=== PATIENT | male | born 1955 | race Caucasian/White ===

== ENCOUNTER 2018-11-05 09:14 | Inpatient (IN) | payer OTHER ==
--- NOTE | 2018-11-05 09:45 | CT ---
CT Brain WO Con: 11/05/2018 9:30 AM CLINICAL HISTORY: Stroke protocol. IMAGING TECHNIQUE: Multiple CT images were obtained of the brain without IV contrast. COMPARISON: None. FINDINGS: Extra axial spaces: Normal in size and morphology for the patient's age. Hemorrhage: None. Ventricular system: Normal in size and morphology for the patient's age. Basal cisterns: Normal. Cerebral parenchyma: There is moderate chronic small vessel white matter ischemic change. There are r emote lacunar infarcts involving the basal ganglia bilaterally as well as the left thalamus. Midline shift: None. Cerebellum: Normal. Brainstem: Normal. OTHER: Calvarium: Normal. Vascular system: Normal. Visualized Paranasal sinuses: Clear. Visualized Orbits: Normal. Visualized upper cervical spine: Normal. Sella and skull base: Normal. IMPRESSION: No acute intracranial abnormality. Findings called to Dr. Foster at 9:40 AM on November 05, 2018.
[2018-11-05 09:47] LABS: INR-International Normal Ratio 1.1; PTT 36.8 SEC (22.9-36.1); Prothrombin Time 13.8 SEC (12.0-14.7)
[2018-11-05 09:51] LABS: Band 3 % (5-11); Eosinophils 2 % (0-10); Hemoglobin 16.8 g/dL (14.0-18.0); Lymphocytes 6 % (21-51); MDiff Complete? YES; Mean Corpuscular HGB CONC 32.6 g/dL (32.0-36.0); Mean Corpuscular Hemoglobin 27.4 pg (27.0-31.0); Mean Corpuscular Volume 83.8 fL (78.0-98.0); Mean Platelet Volume 7.8 fL (7.4-10.4); Monocytes 13 % (0-10); Neutrophil 74 % (42-75); Platelet Count 207 thou/uL (130-400); Platelet Morphology Comment Appears Adequate; RBC Distribution Width 13.4 % (11.5-14.5); Reactive Lymphocytes 1 % (0-10); Red Blood Cell (RBC) Count 6.13 mill/uL (4.70-6.10); White Blood Cell (WBC) Count 8.9 thou/uL (4.8-10.8)
[2018-11-05] MEDS ORDERED: niCARdipine 20MG In NaCl 20 MG/200 ML BAG ONE (09:56)
[2018-11-05 10:00] LABS: Bilirubin Negative (Negative); Blood, Urine Small (Negative); Glucose, Urine (Dipstick) Negative (Negative); Leukocyte Negative (Negative); Nitrite Negative (Negative); Protein, Urine (Dipstick) > or equal to 300 mg/dL (Neg-Trace); Specific Gravity, Urine 1.025 (1.005-1.030); Urobilinogen 0.2 mg/dL (0.2-1.0); pH, Urine 6.5 (5.0-9.0)
[2018-11-05 10:01] LABS: Clarity Slightly Cloudy (Clear)
[2018-11-05 10:02] LABS: Squamous Epithelial 0-3 HPF (0-3); WBC/HPF 0-3 HPF (0-3)
[2018-11-05 10:03] LABS: Bacteria/HPF None Seen HPF (None Seen); Other Casts/LPF 0-3 FINELY GRAN LPF (0-3 Hyaline)
--- NOTE | 2018-11-05 10:09 | RAD ---
EXAM: XR Chest 1 View Portable PROVIDED CLINICAL HISTORY: Altered mental status COMPARISON: None FINDINGS: Cardiac silhouette appears enlarged, which may be least partially on the basis of portable technique. Vascular calcification involves the aortic arch. Elevation of the right hemidiaphragm of unknown chronicity. No focal consolidation, pleural fluid or pneumothorax apparent. IMPRESSION: No definite evidence for an acute cardiopulmonary process.
[2018-11-05 10:20] LABS: ALT (SGPT) 25 U/L (8-55); AST (SGOT) 28 U/L (5-34); Albumin 4.1 g/dL (3.4-4.8); Alkaline Phosphatase 66 U/L (40-150); Anion Gap 16 mmol/L (10-20); BUN (Urea Nitrogen) 13 mg/dL (8.4-25.7); Bilirubin, Total 1.6 mg/dL (0.2-1.2); Calc. Creatinine Clearance 0 mL/min (70-130); Carbon Dioxide 24 mmol/L (23-31); Chloride 103 mmol/L (98-107); Estimated GFR-MDRD Greater than 90; Globulin 2.7 g/dL (2.4-3.5); Glucose 151 mg/dL (80-115); Lipase 19 U/L (8-78); Potassium 3.7 mmol/L (3.5-5.1); Protein, Total 6.8 g/dL (5.8-8.1); Sodium 139 mmol/L (136-145)
[2018-11-05 12:42] VITALS: BMI 37.8
[2018-11-05] MEDS ORDERED: niCARdipine 20MG In NaCl 20 MG/200 ML BAG IVPB SCH ×2 (13:30→13:45)
[2018-11-05 14:27] LABS: Troponin I 0.025 ng/mL (< 0.028)
[2018-11-05] MEDS ORDERED: Loperamide HCl 2 MG CAP PO PRN (15:19)
[2018-11-05] MEDS ORDERED: Ondansetron PF 4 MG/2 ML Vial IVP PRN (15:19)
[2018-11-05] MEDS ORDERED: hydrALAZINE 20 MG/ML VIAL SLOW IVP PRN (15:19)
[2018-11-05] MEDS ORDERED: Labetalol HCl 100 MG/20 ML VIAL SLOW IVP PRN (15:19)
[2018-11-05] MEDS ORDERED: Guaifenesin DM 100-10/5 ML UDCUP PO PRN (15:19)
[2018-11-05] MEDS ORDERED: Zolpidem Tartrate 5 MG TAB PO PRN (15:19)
[2018-11-05] MEDS ORDERED: HYDROcodone/Acetaminophen 7.5/325 mg Tablet PO PRN (15:19)
[2018-11-05] MEDS ORDERED: Dextrose 50% Abboject 50 ML SYRINGE SLOW IVP PRN (15:24)
[2018-11-05] MEDS ORDERED: HumaLOG 300 UNITS/3 ML VIAL SC PRN (15:24)
[2018-11-05] MEDS ORDERED: Dextrose 5% in Water 1,000 ML IV PRN (15:24)
[2018-11-05 16:18] LABS: Troponin I 0.021 ng/mL (< 0.028)
[2018-11-05] MEDS: niCARdipine HCl 25 MG in Sodium Chloride 0.9% 250 ML 240 ML IVPB SCH ×2 (18:09→22:17)
[2018-11-05] MEDS: Rosuvastatin 20 MG TAB PO SCH (21:02)
[2018-11-05] MEDS: Famotidine 20 MG TAB PO SCH (21:03)
--- NOTE | 2018-11-05 22:23 | HP ---
REASON FOR ADMISSION: Altered mentation, slurred speech. PRIMARY CARE PHYSICIAN: Out of town physician. HISTORY OF PRESENT ILLNESS: This is a 63-year-old male with past medical history of type 2 diabetes, hypertension, obstructive sleep apnea, atrial fibrillation, came to the hospital with slurry speech and altered mentation. The patient is visiting here, actually he is a friend of chief security and safety officer, Dr. Stiles and he was staying with Dr. Stiles, started to have slurred speech yesterday last night and thought it might get better, but this morning also he continued to have it and he was taken to the ER. Currently, he is feeling better. All his symptoms are resolved now. He was evaluated in the ER and was sent over here for further evaluation for stroke. He was out of the interventional and surgical time line. No chest pain or palpitation. No fever or chills. No nausea or vomiting. The patient denies any symptoms at this point and denies any blurriness or headaches. Denies any weakness. PAST MEDICAL HISTORY: Positive for type 2 diabetes, hypertension, hyperlipidemia, obstructive sleep apnea, atrial fibrillation. PAST SURGICAL HISTORY: Knee surgery. HOME MEDICATIONS: 1. Metoprolol 200 mg daily. 2. Benicar HCT 40/12.5 one p.o. daily. 3. Atorvastatin 20 mg daily. 4. Metformin 1000 b.i.d. ALLERGIES: NO KNOWN DRUG ALLERGIES. CODE STATUS: Full. SOCIAL HISTORY: Denies any smoking, alcohol, or illicit drug abuse, he is a social drinker. FAMILY HISTORY: Positive for heart disease. REVIEW OF SYSTEMS: CONSTITUTIONAL: Negative for weight loss or gain, ability to conduct usual activities. SKIN: Negative for rash, itching. EYES: Negative for double vision, pain. ENT/MOUTH: Negative for nose bleeding, neck stiffness, pain, tenderness. CARDIOVASCULAR: Negative for palpitations, dyspnea on exertion, orthopnea. RESPIRATORY: Negative for shortness of breath, wheezing, cough, hemoptysis, fever or night sweats. GASTROINTESTINAL: Negative for poor appetite, abdominal pain, heartburn, nausea, vomiting, constipation, or diarrhea. GENITOURINARY: Negative for urgency, frequency, dysuria, nocturia. MUSCULOSKELETAL: Negative for pain, swelling. NEUROLOGIC/PSYCHIATRIC: Negative for anxiety, depression. ALLERGY/IMMUNOLOGIC: Negative for skin rash, bleeding tendency. PHYSICAL EXAMINATION: GENERAL: This is an obese male, in no apparent distress. VITAL SIGNS: Temperature 98, pulse 68, respiratory rate 28, blood pressure 149/89. HEENT: Atraumatic, normocephalic. Oral mucosa moist. NECK: Supple. CV: S1, S2. Rate irregularly irregular. CHEST: Clear. GI: Abdomen is obese, soft, nontender. MUSCULOSKELETAL: 1+ edema. DERMATOLOGIC: No skin rash. NEUROLOGICAL: Alert, awake, moves all the extremities. No weakness. Sensations are normal. Extraocular muscles are intact. Pupils are equal, round, and reactive to light. PSYCHIATRIC: Mood and affect normal. LABORATORY DATA: Hemoglobin 16.8, potassium is 3.7, BUN is 13, creatinine is 0.8. ASSESSMENT AND PLAN: 1. Altered mentation. We will rule out cerebrovascular accident, most likely transient ischemic attack, but plan is to have MRI, and also neuro consult and stroke team. We will also check carotid Doppler and echocardiogram. 2. Aphasia, as above. 3. Hypertension, on Cardene drip and we will start on home medications and monitor. 4. Type 2 diabetes. We will hold metformin. We will start on sliding scale and monitor blood sugar and adjust the dose as needed. 5. Hyperlipidemia, continue on statin. We will also add aspirin and the patient is not sure if he was on Plavix. Plan is to consult Neurology. Check MRI, carotid Doppler, and echocardiogram. Start on aspirin for now. The patient was not taking aspirin, we would add Plavix also. We will check lipid panel in the morning. We will check TSH in the morning. 6. Gastrointestinal/deep venous thrombosis prophylaxis. 7. Code status is full. 8. We will continue close monitoring in CCU on Cardene drip and down-titrate the medication. and monitor blood pressure closely. Job ID: [id number]
[2018-11-06] MEDS: niCARdipine HCl 25 MG in Sodium Chloride 0.9% 250 ML 240 ML IVPB SCH (01:34)
[2018-11-06 05:28] LABS: #Basophils 0.1 thou/uL (0.0-0.2); #Eosinphils 0.3 thou/uL (0.0-0.7); #Lymphocytes 1.3 thou/uL (1.20-3.40); #Monocytes 0.9 thou/uL (0.11-0.59); %Eosinophils 3.1 % (0.0-10.0); %Lymphocytes 15.6 % (21.0-51.0); %Monocytes 10.5 % (0.0-10.0); %Neutrophils 69.8 % (42.0-75.0); Hemoglobin 16.7 g/dL (14.0-18.0); Mean Corpuscular HGB CONC 32.7 g/dL (32.0-36.0); Mean Corpuscular Hemoglobin 28.4 pg (27.0-31.0); Mean Corpuscular Volume 86.6 fL (78.0-98.0); Mean Platelet Volume 8.4 fL (7.4-10.4); Platelet Count 233 thou/uL (130-400); RBC Distribution Width 13.3 % (11.5-14.5); Red Blood Cell (RBC) Count 5.88 mill/uL (4.70-6.10); White Blood Cell (WBC) Count 8.6 thou/uL (4.8-10.8)
[2018-11-06 05:36] LABS: Anion Gap 15 mmol/L (10-20); BUN (Urea Nitrogen) 15 mg/dL (8.4-25.7); Calc. Creatinine Clearance 151 mL/min (70-130); Carbon Dioxide 25 mmol/L (23-31); Cardiac Risk 2.4 (Less than 4.5); Chloride 100 mmol/L (98-107); Cholesterol 111 mg/dl (< 200 Desired); Estimated GFR-MDRD Greater than 90; Glucose 134 mg/dL (80-115); HDL Cholesterol 47 mg/dL (>60 Neg Risk); LDL Cholesterol, Calculated 42 mg/dL; Potassium 3.3 mmol/L (3.5-5.1); Sodium 137 mmol/L (136-145); Triglycerides 112 mg/dL (Less than 150)
[2018-11-06] MEDS: Hydrochlorothiazide 25 MG TAB PO SCH (08:39)
[2018-11-06] MEDS: Famotidine 20 MG TAB PO SCH ×2 (08:40→21:50)
[2018-11-06] MEDS: Enoxaparin Sodium 40 MG/0.4 ML SYRINGE SC SCH (08:40)
[2018-11-06] MEDS: Clopidogrel Bisulfate 75 MG TAB PO SCH (08:40)
--- NOTE | 2018-11-06 08:47 | PDOC.PN ---
- Subjective Encounter Start Date: 11/06/18 Encounter Start Time: 08:45 Patient seen and examined. No new complaints. No overnight events. feeling better. speech normal. no weakness. was little unsteady with the mary when he got up from the bed. No N/V. No chest pain. - Objective Resuscitation Status - Order Detail: 11/05/18 15:19 Resuscitation Status Routine Resuscitation Status: FULL: Full Resuscitation MAR Reviewed: Yes Vital Signs & Weight: Vital Signs (12 hours) Temp 11/06/18 08:00 98.6 F 11/06/18 04:00 98.9 F 11/06/18 00:00 98.5 F Weight Weight 255 lb 11.779 oz Most Recent Monitor Data Heart Rate from ECG 75 NIBP 167/114 NIBP BP-Mean 131 Respiration from ECG 21 SpO2 92 I&O: 11/05/18 11/06/18 11/07/18 06:59 06:59 06:59 Intake Total 1414 Output Total 2500 400 Balance -1086 -400 Result Diagrams: 11/06/18 04:20 11/06/18 04:20 Additional Labs: Accuchecks 11/05/18 11/05/18 11/05/18 20:56 16:35 09:26 POC Glucose 174 H 146 H 138 H Phys Exam - Physical Examination Constitutional: NAD HEENT: sclera anicteric Neck: supple Respiratory: no wheezing, no rales Cardiovascular: irregular Gastrointestinal: soft Musculoskeletal: edema present Neurological: non-focal Psychiatric: normal affect, A&O x 3 Skin: no rash Dx/Plan (1) Aphasia Code(s): R47.01 - APHASIA Status: Resolved (2) HTN (hypertension) Code(s): I10 - ESSENTIAL (PRIMARY) HYPERTENSION Status: Chronic (3) HLD (hyperlipidemia) Code(s): E78.5 - HYPERLIPIDEMIA, UNSPECIFIED Status: Chronic (4) Type 2 diabetes mellitus Status: Chronic (5) Afib Code(s): I48.91 - UNSPECIFIED ATRIAL FIBRILLATION Status: Chronic - Plan cont current plan of care, PT/OT, out of bed/ambulate, DVT proph w/lovenox * . symptoms better awaiting neuro input MRI and carotid doppler pending Echo pending continue ASA and Plavix with statin off cardene drip uptitrate BP meds Transfer to [facility] AM labs.
[2018-11-06] MEDS ORDERED: Potassium Chloride 20 MEQ TAB PO SCH (09:00)
[2018-11-06] MEDS ORDERED: Aspirin 325 mg Enteric Coated Tablet PO SCH ×2 (09:00)
[2018-11-06] MEDS: cloNIDine 0.1 MG TAB PO PRN ×2 (09:07→16:44)
--- NOTE | 2018-11-06 10:36 | ULT ---
CAROTID DUPLEX ULTRASOUND: DATE: 11/06/18 INDICATION: Question of CVA with history of altered mental status. FINDINGS: There is mild atherosclerotic plaque involving the proximal internal carotid arteries and distal comm on carotid arteries. Peak systolic velocity in the right CCA is 59.6 cm/second and in the left is 72.3 cm/second. Peak systolic velocity in the right ICA is 56.3 cm/second and in the left is 55.3 cm/second. The right ICA/CCA ratio is 0.94 and the left is 0.76. Antegrade flow seen within the vertebral arteries. IMPRESSION: No hemodynamically significant stenosis. POS: BH
--- NOTE | 2018-11-06 14:00 | MRI ---
EXAM: MRI Brain WO Con PROVIDED CLINICAL HISTORY: Stroke, slurred speech, hypertension COMPARISON: CT brain 11/05/2018 FINDINGS: The ventricular system appears normal in size and morphology. There is no evidence for intracranial h emorrhage or mass effect. There is a small focus of restricted diffusion involving the region of the left thalamus/posterior limb of left internal capsule compatible with acute lacunar infarction. P rominent chronic microvascular ischemic change involves the cerebral white matter and tracee. Appropriate flow voids are seen within the major intracranial vessels. The visualized extracranial so ft tissues and calvarial marrow signal appear normal. IMPRESSION: 1. Recent lacunar infarction involving the left thalamus/posterior limb left internal capsule. 2. Prominent chronic microvascular ischemic change.
[2018-11-06] MEDS ORDERED: ALPRAZolam 0.5 MG TAB PO SCH (17:30)
[2018-11-06] MEDS: Rosuvastatin 20 MG TAB PO SCH (21:50)
--- NOTE | 2018-11-07 00:55 | CON ---
DATE OF CONSULTATION: 11/06/2018 CHIEF COMPLAINT: The patient is a 63-year-old right-handed man, who appears comfortable today from his chair. He reports that he thinks he went up to a football game on Wednesday night and he started to have slurred speech and shortness of breath. On Wednesday night, he did not sleep well, but yesterday morning, he woke up and continued to have slurred speech and decided to come to the hospital. He has no history of weakness of sensory symptoms. His blood pressure was fluctuating since Wednesday. This morning, he feels his symptoms have completely resolved. Approximate duration of speech dysfunction was one day he had mild slowing of gait. PREVIOUS MEDICAL HISTORY: The patient has diabetes, hypertension, and hypercholesterolemia. He had three stents for his coronary artery disease. He had two stents performed ten years ago and one stent placed seven years ago. He also has atrial fibrillation. PREVIOUS SURGICAL HISTORY: Stent placement, torn cartilage repair of the left knee 20 years ago. SOCIAL HISTORY: He is a nonsmoker. He drinks alcohol occasionally. 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 Work is stressful. FAMILY HISTORY: Mother at 90 years of age following a CVA. Father at 75. He had coronary artery disease. Brother and sister are alive, they are 62 and 60 and they are healthy. ALLERGIES: NO KNOWN DRUG ALLERGIES. HOME MEDICATIONS: 1. Metoprolol. 2. Benicar. 3. Atorvastatin. 4. Metformin. REVIEW OF SYSTEMS: ENT: Negative for any throat problems or swallowing difficulties. OPHTHALMOLOGIC: Negative for any visual defects. PULMONARY: Positive for shortness of breath. GI: Negative for nausea, vomiting, or diarrhea. GENITOURINARY: Negative for any bladder dysfunction. NEUROLOGIC: Positive for slurred speech and gait disturbance. DERMATOLOGIC: Negative for any rash. HEMATOLOGIC: Negative for bleeding diathesis. PHYSICAL EXAMINATION: VITAL SIGNS: Blood pressure 186/106, heart rate is 76. The patient was afebrile, temperature 98.6. GENERAL APPEARANCE: A well-built, well-nourished, slightly obese gentleman, who appears comfortable. CHEST: Clear vesicular breathing. CARDIOVASCULAR: S1 and S2 heard. No murmurs. ABDOMEN: Soft and nontender. No organomegaly noted. NEUROLOGIC: Motor; bulk, normal and tone, normal. Strength 5/5 in the upper and lower extremities bilaterally. Muscle groups tested are iliopsoas, hamstrings, quadriceps, ankle dorsiflexion, plantar flexion, deltoid, biceps, triceps, wrist extension, flexion, finger extension, and flexion. Deep tendon reflexes 1+ in the upper extremities and 2+ in the lower extremities. Sensory and cerebellar are normal. Gait is not tested. LABORATORY WORKUP: White count 8.6, hemoglobin 16.7, hematocrit 51, and platelet count 233. Chemistry; sodium 137, potassium 3.3, chloride 100, BUN 15, creatinine 0.82, and glucose 134. Triglycerides 112, cholesterol 111, LDL 42, HDL 47, and TSH 2.73. Urinalysis is positive for protein and also small amount of blood. PT 13.8, INR 1.1, and PTT 36.8. DIAGNOSTIC DATA: CT of the head showed no evidence of any acute intracranial abnormality and MRI of the brain was completed and MRI showed recent lacunar infarct in the left thalamus and posterior limb of left internal capsule, prominent chronic microvascular ischemic change. Carotid Doppler did not show any hemodynamically significant study abnormalities. Echocardiogram is pending. IMPRESSION: The patient is a 63-year-old man, who has had fluctuations in his blood pressure with significant levels of hypertension over the past 48 hours. He has developed slurred speech and his neurological symptoms lasted for one day. He is currently back to baseline. He thinks he might have had a similar stroke 1-1/2 years ago. His MRI shows left lacunar infarct in the internal capsule in the thalamic area; however, his clinical symptoms have resolved at this time and his examination is normal. 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 TREATMENT RECOMMENDATIONS: Please add aspirin and statin to his medication regimen to control risk factor, mainly hypertension and please educate the patient about stroke risk factors and management of stress. Please complete his cardiac workup as well and have him follow up with Dr. Tolentino as outpatient extensively and he will need outpatient neurology followup. I discussed that with the patient, but the patient stated he lives in [place]. He has a neurologist. I advised him to follow up with him again. Job ID: [id number]
[2018-11-07] MEDS: cloNIDine 0.1 MG TAB PO PRN (04:43)
[2018-11-07 05:57] LABS: Anion Gap 12 mmol/L (10-20); BUN (Urea Nitrogen) 12 mg/dL (8.4-25.7); Calc. Creatinine Clearance 129 mL/min (70-130); Calcium 9.5 mg/dL (7.8-10.44); Carbon Dioxide 30 mmol/L (23-31); Chloride 101 mmol/L (98-107); Estimated GFR-MDRD 79; Glucose 124 mg/dL (80-115); Potassium 3.9 mmol/L (3.5-5.1); Sodium 139 mmol/L (136-145)
[2018-11-07] MEDS: Enoxaparin Sodium 40 MG/0.4 ML SYRINGE SC SCH (08:27)
[2018-11-07] MEDS: Clopidogrel Bisulfate 75 MG TAB PO SCH (08:28)
[2018-11-07] MEDS: Famotidine 20 MG TAB PO SCH ×2 (08:29→21:25)
[2018-11-07] MEDS: Hydrochlorothiazide 25 MG TAB PO SCH (08:29)
[2018-11-07 13:38] LABS: ANA Symphony (Qualitative) Negative (Negative); ANA Symphony (Quantitative) 0.2 Ratio (< 0.7 Negative); dsDNA IgG Antibody 4.4 IU/mL (<10 Negative)
--- NOTE | 2018-11-07 17:38 | PDOC.PN ---
- Subjective Encounter Start Date: 11/07/18 Encounter Start Time: 17:20 Subjective: f/u for HTN-induced lacunar infarct of L internal capsule with -: initial dysphasia and dysarthria now improved. Feels ok overall. - Objective Resuscitation Status - Order Detail: 11/05/18 15:19 Resuscitation Status Routine Resuscitation Status: FULL: Full Resuscitation MAR Reviewed: Yes Vital Signs & Weight: Vital Signs (12 hours) Temp Pulse Resp BP Pulse Ox 11/07/18 15:48 98.0 F 64 18 183/94 H 96 11/07/18 11:18 97.6 F 80 16 160/99 H 96 11/07/18 08:23 94 L 11/07/18 07:40 97.5 F L 64 16 174/115 H 95 Weight Weight 255 lb 11.779 oz Most Recent Monitor Data Heart Rate from ECG 70 NIBP 160/89 NIBP BP-Mean 112 Respiration from ECG 30 SpO2 100 I&O: 11/06/18 11/07/18 11/08/18 06:59 06:59 06:59 Intake Total 1414 720 Output Total 2500 400 Balance -1086 320 Result Diagrams: 11/06/18 04:20 11/07/18 05:21 Additional Labs: Accuchecks 11/07/18 05:30 POC Glucose 122 H Radiology Reviewed by me: Yes (MRI brain - acute lacunar infarct L internal capsule) EKG Reviewed by me: Yes (Tele - A-fib in 70's) Phys Exam - Physical Examination Constitutional: NAD HEENT: PERRLA, sclera anicteric, oral pharynx no lesions Neck: no nodes, no JVD, supple, full ROM Respiratory: no wheezing, no rales, no rhonchi, clear to auscultation bilateral S1, S2 Cardiovascular: no significant murmur, no rub, irregular Gastrointestinal: soft, non-tender, no distention, positive bowel sounds mild LE edema Musculoskeletal: pulses present Neurological: normal sensation, moves all 4 limbs Psychiatric: A&O x 3 Skin: normal turgor, cap refill <2 seconds Dx/Plan (1) CVA (cerebral vascular accident) Code(s): I63.9 - CEREBRAL INFARCTION, UNSPECIFIED Status: Acute Qualifiers: Laterality of affected vessel: left Comment: Lacunar infarct L internal capsule, continue Plavix 75mg daily, risk factor modification (2) Dysarthria Code(s): R47.1 - DYSARTHRIA AND ANARTHRIA Status: Acute Comment: Secondary to #1, improved (3) Afib Code(s): I48.91 - UNSPECIFIED ATRIAL FIBRILLATION Status: Chronic Qualifiers: Atrial fibrillation type: chronic Qualified Code(s): I48.2 - Chronic atrial fibrillation Comment: Rate-controlled currently, continue Metoprolol, consider OAC given presentation with CVA and high risk for recurrence (4) HLD (hyperlipidemia) Code(s): E78.5 - HYPERLIPIDEMIA, UNSPECIFIED Status: Chronic Comment: Controlled, continue Lipitor (5) HTN (hypertension) Code(s): I10 - ESSENTIAL (PRIMARY) HYPERTENSION Status: Chronic Qualifiers: Hypertension type: essential hypertension Qualified Code(s): I10 - Essential (primary) hypertension Comment: Labile, add Amlodipine 5mg daily, continue Metoprolol and Olmesartan/ HCTZ (6) Type 2 diabetes mellitus Status: Chronic Comment: Continue Metformin, serial accuchecks - Plan 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
[2018-11-07] MEDS ORDERED: Amlodipine 5 MG TAB PO SCH (18:00)
[2018-11-07] MEDS ORDERED: Melatonin 3 MG TAB PO PRN (19:56)
[2018-11-07] MEDS: Apixaban 5 MG TAB PO SCH (21:25)
[2018-11-07] MEDS: Rosuvastatin 20 MG TAB PO SCH (21:25)
[2018-11-08 08:25] VITALS: BP 215/94; TEMP 99.3
[2018-11-08] MEDS: Clopidogrel Bisulfate 75 MG TAB PO SCH (08:36)
[2018-11-08] MEDS: Hydrochlorothiazide 25 MG TAB PO SCH (08:36)
[2018-11-08] MEDS: Famotidine 20 MG TAB PO SCH (08:38)
[2018-11-08] MEDS: Apixaban 5 MG TAB PO SCH (08:39)
[2018-11-08] MEDS ORDERED: Amlodipine 5 MG TAB PO SCH (09:00)
--- NOTE | 2018-11-08 12:13 | DIS ---
DATE OF ADMISSION: 11/05/2018 DATE OF DISCHARGE: 11/08/2018 DISCHARGE DIAGNOSES: 1. Acute lacunar cerebrovascular accident of the left internal capsule, likely hypertensive induced. 2. Dysarthria secondary to #1, improved. 3. Chronic atrial fibrillation with controlled rate, on anticoagulation with Eliquis. 4. Hyperlipidemia. 5. Hypertension, labile. 6. Diabetes mellitus, type 2, stable. CONSULTATIONS: Dr. Akers with Neurology Service. PERTINENT LAB AND X-RAY FINDINGS: Total cholesterol 111, triglycerides 112, HDL 47, and LDL 42. Lipase 19. TSH 2.74. CBC within normal limits. PT 13.8, INR 1.1, and PTT 36.8. GABI screen negative. Portable chest x-ray dated 11/05/2018 showed no acute cardiopulmonary process. CT of the brain without contrast dated 11/05/2018 showed no acute intracranial process. Carotid Doppler study dated 11/06/2018 showed no hemodynamically significant stenosis. MRI of the brain dated 11/06/2018 showed lacunar infarct of the left thalamus/posterior limb of the left internal capsule. Chronic microvascular ischemic changes noted. 2D transthoracic echocardiogram dated 11/06/2018 showed ejection fraction of 50% to 55%. [id number] left atrial enlargement. HOSPITAL COURSE: The patient was initially admitted to the stroke unit after presenting with dysarthria as well as hypertension with initial concern for TIA. The patient was initiated on aspirin as well as placed on a Cardene infusion due to hypertension. The patient underwent general stroke protocol including CT and MRI imaging showing evidence of a lacunar infarct of the left internal capsule. The patient was noted with labile hypertension throughout the hospital course with titration of his blood pressure regimen with additional amlodipine 10 mg daily added to his regimen. The patient was medically managed and overall the dysarthria improved with medical treatment. The patient was ambulatory without assistance or difficulty and tolerating regular oral intake. Telemetry monitoring showed atrial fibrillation with controlled rate throughout the hospital course. Due to the patient's chronic atrial fibrillation and presentation with CVA, the patient was initiated on Eliquis 5 mg b.i.d. with CHADS-VASc2 score of 5. I have examined the patient at the time of discharge and discussed followup instructions with the patient. The patient verbalized understanding and in agreement and ready for discharge on 11/08/2018. DISCHARGE MEDICATIONS: 1. Plavix 75 mg p.o. daily. 2. Amlodipine 10 mg p.o. daily. 3. Eliquis 5 mg p.o. b.i.d. 4. Lipitor 20 mg p.o. daily. 5. Metformin 1000 mg p.o. b.i.d. 6. Toprol-XL 200 mg p.o. daily. 7. Benicar HCT 40/12.5 mg 1 tablet p.o. daily. FOLLOWUP: The patient may follow up with his neurologist in the [facility] after returning home within 7 days. CONDITION ON DISCHARGE: Stable. ACTIVITY: Ad-yasmine. DIET: ADA and heart healthy. CODE STATUS: Full. DISPOSITION: To home, 11/08/2018. TIME SPENT: Total time preparing and coordinating discharge is 40 minutes. Job ID: [id number]
== END 2018-11-08 12:22 | disposition home or self-care (01) | DRG 65 ==
LOC: SCSER 09:14 → CCU 10:44 → 2SE 11-06 19:55
PROVIDERS: ADMIT Internal Medicine; ATTEND Internal Medicine
DX: I63.81 Other cerebral infarction due to occlusion or stenosis of small artery (principal); I16.1 Hypertensive emergency; R47.1 Dysarthria and anarthria; I48.2 Chronic atrial fibrillation; E78.5 Hyperlipidemia, unspecified; I10 Essential (primary) hypertension; E11.9 Type 2 diabetes mellitus without complications; G47.33 Obstructive sleep apnea (adult) (pediatric); R47.01 Aphasia; Z98.890 Other specified postprocedural states; Z79.84 Long term (current) use of oral hypoglycemic drugs
CPT/HCPCS: 36415; 36416; 70450; 70551; 71045; 80048; 80053; 80061; 81003; 81015; 83690; 84443; 84484; 85025; 85610; 85730; 86038; 86225; 90471; 90662; 90732; 93005; 93306; 93880; 96365; 96366; G0008; G0009; J0360; J1650; J7050